=== PATIENT | male | born 1965 | race African-American/Black ===

== ENCOUNTER 2017-03-22 01:30 | Inpatient (IN) ==
[2017-03-22] MEDS ORDERED: cloNIDine 0.1 MG TABLET PO STA (02:15)
[2017-03-22] MEDS ORDERED: cloNIDine 0.1 MG TABLET ONE ×2 (02:19→02:20)
[2017-03-22] MEDS ORDERED: hydrALAZINE 20 MG/1 ML VIAL IV STA (03:20)
[2017-03-22] MEDS ORDERED: hydrALAZINE 20 MG/1 ML VIAL ONE (03:20)
[2017-03-22 03:28] LABS: Basophils # 0.1 10*3/uL (0.0-0.2); Basophils % 0.7 % (0.0-0.8); Eosinophils # 0.1 10*3/uL (0.0-0.87); Eosinophils % 1.3 % (0.00-10.9); Hemoglobin 12.2 GM/DL (14.0-18.0); Immature Granulocytes % 0.3 %; Immature Granulocytes Absolute 0.03 #; Lymphocytes # 2.6 10*3/uL (1.4-4.0); Lymphocytes % 25.2 % (21.2-54.2); Mean Corpuscular Hemoglobin 31 PG (27-34); Mean Corpuscular Volume 93.4 FL (87-102); Mean Platelet Volume 10.3 FL (9.6-12.0); Monocytes # 0.7 10*3/uL (0.11-0.8); Monocytes % 6.3 % (1.7-12.7); Neutrophils % 66.2 % (38.7-73.9); Platelet Count 276 T/CUMM (130-400); Red Blood Count 3.96 MC/CUMM (3.8-5.5); Red Cell Distribution Width 12.7 % (9.3-17.3); White Blood Count 10.5 T/CUMM (4-12)
--- NOTE | 2017-03-22 03:36 | EKG Report ---
Stationary ECG Study [facility] ER Test Date: 03/22/2017 3:34:23 AM Pat Name: JASMIN GHOSH Department: Room: Gender: M Special Delivery Messenger: : 1965 Requested by: Saul Smart Order Number: [id number] Reading MD: ROMINA CAO Intervals [place] Rate: 108 P: 65 VT: 147 QRS: 30 QRSD: 78 T: 119 QT: 303 QTc: 367 Interpretive Statements SINUS TACHYCARDIA BIATRIAL ABNORMALITIES LEFT VENTRICULAR HYPERTROPHY AND ST-T CHANGE Electronically Signed On 03-22-17 20:40:20 CDT by ROMINA CAO [id number]
[2017-03-22 05:22] LABS: Calcium 8.6 MG/DL (8.5-10.1); Osmolality,Calculated 280.4 MOS/KG (273-304); Potassium 4.3 MMOL/L (3.5-5.1)
--- NOTE | 2017-03-22 05:37 | Emergency Department Note ---
Betsy Garcia Gwan, am scribing for, and in the presence of, Saul Singh MD 02:36. ISamantha Kevin Lee, MD, personally performed the services described in this documentation, ascribed by Estrella Meyer in my presence, and it is both accurate and complete 537 . Arrival - Arrival Chief Complaint: Upper Respiratory Stated Complaint: coughs/hard to breathe/stomach issues ED Nursing Triage Note: Pt c/o cough, runny nose, constipation, sore throat. Pt states he was coughing up mucous. Pt states he has been out of his bp med for the past two months. BP 194/135 IN TRIAGE. Mode of Arrival: Ambulatory Limitations: No Limitations Source: Patient, Old Records Reviewed, RN Notes Reviewed Time Seen by Provider: 03/22/17 02:14 - History of Present Illness HPI Narrative: Patient is a 51 y/o male who presents to the ED with a c/o productive cough with yellow sputum and SOB. Patient continued to note that his sxs have progressively gotten worse since onset and have begun to prevent him from working at his fullest. He confirmed that he has been out of his BP medication for the past month but stated that he has been checking his BP at Mr. Garcia and been taking a low dose ASA. Since onset of sxs, his BP has been elevated causing concern and prompting his visit to the ED for further evaluation. At time of triage, pt's BP was 194/135. Patient did not appear to be in any distress while in ED. No other problems/complaints reported. \ Onset (ago): day(s) Consistency: constant Severity: moderate Allergies/Adverse Reactions: Allergies Allergy/AdvReac Type Severity Reaction Status Date / Time No Known Allergies Allergy Unverified 03/22/17 01:48 Review of System - Review of System 12 point system: reviewed and no additional remarkable complaints except as stated - Review of System Constitutional: Absent: chills, fever Eyes: Absent: discharge, pain Respiratory: Present: as per HPI, cough, other (shortness of breathe) Cardiovascular: Absent: chest pain Gastrointestinal: Absent: abdominal pain, nausea, vomiting, diarrhea Medical,Surgical,& Family Hx - Medical History Cardio: History of: Hypertension - Social History Smoking Status: Current every day smoker Frequency of Alcohol Use: Frequently Type of Drug Use: None Exam Vital Signs: Vital Signs Temperature 97.7 F 03/22/17 02:25 Pulse Rate 121 H 03/22/17 02:25 Respiratory Rate 18 03/22/17 02:25 Blood Pressure 194/135 03/22/17 02:25 O2 Sat by Pulse Oximetry 96 03/22/17 01:43 - General General appearance: alert, in no apparent distress - Head Head exam: Present: atraumatic, normocephalic - Eye Eye exam: Present: normal appearance, PERRL, EOMI - ENT ENT exam: Present: normal oropharynx, mucous membranes moist, TM's normal bilaterally, normal external ear exam - Neck Neck exam: Present: full ROM, trachea midline. Absent: tenderness - Chest Chest inspection: Present: symmetric chest wall rise. Absent: tenderness - Respiratory Respiratory exam: Present: normal lung sounds bilaterally. Absent: respiratory distress - Cardiovascular Cardiovascular exam: Present: regular rate, normal rhythm, normal heart sounds. Absent: murmur, rubs - Abdominal Exam Abdominal exam: Present: soft, normal bowel sounds. Absent: distention, tenderness - Extremities Exam Extremities exam: Present: full ROM. Absent: tenderness - Back Exam Back exam: Present: full ROM. Absent: tenderness - Neurological Exam Neurological exam: Present: alert, oriented X3, CN II-XII intact. Absent: motor sensory deficit - Psychiatric Psychiatric exam: Present: normal affect, normal mood - Skin Skin exam: Present: warm, dry, intact, normal color Course Course Narrative: CXR and labs show CHF will admit for HTN induced failure Results - Labs CBC & BMP: 03/22/17 03:22 03/22/17 03:22 Lab Results: I have reviewed the patients labs Labs: Laboratory Tests 03/22/17 03:22 WBC 10.5 RBC 3.96 Hgb 12.2 L Hct 37.0 L Plt Count 276 - Diagnostic Findings Procedure: Chest x-ray: image reviewed by me (mild CHF) Disposition Clinical Impression: Poorly-controlled hypertension, CHF (congestive heart failure) Case discussed with: patient Disposition: Still a Patient Condition: Stable
--- NOTE | 2017-03-22 06:15 | Hospitalist History & Physical ---
Assessment and Plan - Time spent with patient Time spent with patient: Less than 30 minutes Time spent discussing smoking cessation with patient: 3 to 10 minutes (1) CHF (congestive heart failure) Status: Acute Assessment and plan: BNP 800 Lasix 40mg IV daily EKG pending Cardiology consultation pending O2 PRN Current Visit: Yes (2) Elevated serum creatinine Status: Acute Current Visit: Yes (3) Poorly-controlled hypertension Status: Acute Assessment and plan: Will start back Norvasc 10mg po daily Will continue to monitor Current Visit: Yes History of Present Illness Chief complaint: shortness of breath; cough History of present illness: Called to the ER for Mr. Chapa who is a 51 year old male that presented to the ER with shortness of breath, fatigue, and high blood pressure that started yesterday. Patient states he woke up yesterday feeling very fatigued and short of breath and it continued throughout the day. Patient's blood pressure on arrival was 194/135. Patient has not taken his blood pressure medication for over a year and states he didn't think he needed it because he would check his blood pressure at [facility] and be normal. Patient states he has had a cough with clear sputum for a week now but denies fever, chest pain, dizziness, blurry vision, or WELCH. Patient has a history of HTN and possibly an FL. He states he was admitted here for chest pain and "almost had a heart attack." Patient will be admitted for gentle diuresis, BP control, and consultation with cardiology. Allergies Allergy/AdvReac Type Severity Reaction Status Date / Time No Known Allergies Allergy Unverified 03/22/17 01:48 Medical,Surgical,& Family Hx - Medical History Cardio: History of: Hypertension, [place] No history of: Cardiac Dysrhythmia, CHF, CAD, PVD Psychological: No history of: Anxiety Disorders Neurology: No history of: Neurological Problems HEENT: No history of: HEENT Problems Endocrine: No history of: Endocrine Problems Respiratory: No history of: Respiratory Problems Renal: No history of: Renal Problems Genitourinary: No history of: Problems Gastrointestinal: No history of: GI Problems Musculoskeletal: No history of: Musculoskeletal Problems Hematology: No history of: Blood Disorders - Family History Family History: Reports;: Family Cancer (uncle), Family Diabetes (uncle and aunt ), Family Hypertension (mother), Family Psychiatric Problems (grandmother- alzheimers) - Social History Smoking Status: Current every day smoker Have you smoked in the last 12 months: Yes (1-2 cigarrettes per day for 34 years ) Time spent discussing smoking cessation with patient: 3 to 10 minutes Frequency of Alcohol Use: Frequently (2-3 times a week; 2 beers) Type of Drug Use: None Marital Status: Lives With:: Spouse Functional capacity: independent ambulation - Constitutional Constitutional: Present: fatigue. Absent: chills, frequent falls, headache(s), lethargy, night sweats, weakness - EENT Eyes: Absent: blurry vision Nose, mouth and throat: Absent: headache(s), sore throat - Cardiovascular Cardiovascular: Present: dyspnea, dyspnea on exertion. Absent: chest pain at rest, chest pain with activity, claudication, edema, palpitations - Respiratory Respiratory: Present: cough, dyspnea. Absent: wheezing - Gastrointestinal Gastrointestinal: Absent: abdominal pain, constipation, diarrhea, dyspepsia, dysphagia, nausea, vomiting - Genitourinary Genitourinary: Absent: difficulty urinating - Neurological Neurological: Absent: tremor(s) - Hematologic/Lymphatic Hematologic/Lymphatic: Absent: easy bleeding Exam - Constitutional Vitals: Period Temp Pulse Resp BP Sys/Salvador Pulse Ox Last 24 Hr 97.7 F-97.7 F 121-121 18-18 194-194/135-135 96 General appearance: normal weight, no acute distress - Head Head exam: Present: normal inspection, normocephalic - Eye Eye exam: Present: EOMI Pupils: Present: KEAGAN, normal accommodation - ENT ENT exam: Present: normal exam - Neck Neck exam: Present: normal inspection - Respiratory Respiratory exam: Present: clear to auscultation bilaterally. Absent: accessory muscle use (Respirations even and non-labored with symmetrical rise and fall of chest noted. ) - Cardiovascular Cardiovascular exam: Present: regular rate and rhythm - GI/Abdominal GI/Abdominal exam: Present: normal bowel sounds, soft, other (protruding). Absent: tenderness - Extremities Exam Extremities exam: Present: normal inspection, normal capillary refill, full ROM - Back Exam Back exam: Present: normal inspection - Neurological Exam Neurological exam: Present: alert, oriented X3 (Answers all questions appropriately. Makes good eye contact. ) - Psychiatric Psychiatric exam: Present: normal affect, normal mood - Skin Skin exam: Present: normal color, warm, dry, intact Results - Labs CBC & BMP: 03/22/17 03:22 03/22/17 03:22 Lab Results: I have reviewed the past 24 hour labs
[2017-03-22] MEDS ORDERED: FUROSEMIDE 40 MG/4 ML VIAL IM ONE (07:19)
[2017-03-22] MEDS ORDERED: DOCUSATE SODIUM 100 MG CAPSULE PO PRN (07:28)
[2017-03-22] MEDS ORDERED: ONDANSETRON 4 MG/2 ML VIAL IV PRN (07:28)
[2017-03-22] MEDS ORDERED: NICOTINE 21 MG/24 HR PATCH TRANSDERM PRN (07:28)
[2017-03-22] MEDS ORDERED: ACETAMINOPHEN 325 MG TABLET PO PRN (07:28)
[2017-03-22] MEDS ORDERED: guaiFENesin/DM ER 600-30 MG TABLET PO PRN (07:28)
--- NOTE | 2017-03-22 07:54 | EKG Report ---
Stationary ECG Study [facility] Test Date: 03/22/2017 7:55:21 AM Pat Name: JASMIN GHOSH Department: Room: 280 Gender: M Tie Layer: : 1965 Requested by: Jayshree Roger Order Number: [id number] Reading MD: ELI ROMAN Intervals [place] Rate: 91 P: 60 [place]: 154 QRS: 32 QRSD: 79 T: 93 QT: 342 QTc: 391 Interpretive Statements SINUS RHYTHM POSSIBLE RIGHT ATRIAL ENLARGEMENT POSSIBLE LEFT ATRIAL ENLARGEMENT LEFT VENTRICULAR HYPERTROPHY AND ST-T CHANGE Electronically Signed On 03-26-17 12:16:33 CDT by ELI ROMAN [id number]
[2017-03-22] MEDS ORDERED: CARVEDILOL 12.5 MG TABLET PO SCH (09:00)
[2017-03-22] MEDS ORDERED: amLODIPine 10 MG TABLET PO SCH (09:00)
[2017-03-22 09:47] LABS: Troponin I Only 0.056 NG/ML (0.00-0.045)
[2017-03-22 10:02] LABS: Barbiturates Screen,Urine Negative (Negative); Benzodiazepines Screen,Urine Negative (Negative); Cannabinoid Screen,Urine Negative (Negative); Opiate Screen,Urine Negative (Negative); Phencyclidine Screen,Urine Negative (Negative)
[2017-03-22] MEDS: FUROSEMIDE 40 MG/4 ML VIAL IV SCH (10:08)
[2017-03-22] MEDS: ENOXAPARIN 40 MG/0.4 ML SYRINGE SUBCUT SCH (10:09)
[2017-03-22] MEDS: CHLORTHALIDONE 25 MG TABLET PO SCH (10:09)
[2017-03-22] MEDS: PANTOPRAZOLE 40 MG TABLET PO SCH (10:09)
--- NOTE | 2017-03-22 10:31 | ECHO Report ---
Mike Chapa Exam Date: 03/22/2017 09:22 Referring Physician: Technologist: Ana Cristina Gallegos Age: 51 Ht (in): 66 Wt (lb): 165 Gender: M Exam Location: [facility] Echo Indications: HTN, CHF, SOB BP: 163 / 92 HR: 90 Rhythm: Sinus Technical Quality: IMPRESSIONS 2+ left atrial enlargement 2+ concentric LVH Severely reduced LV systolic function with ejection fraction estimated to be 25% with increased anterior hypokinesis 1+ mitral and tricuspid regurgitation with RVSP 26 mmHg plus RAP MEASUREMENTS (Male / Female) Normal Values 2D ECHO LV Diastolic Diameter PLAX 5.0 cm 4.2 - 5.9 / 3.9 - 5.3 cm LV Systolic Diameter PLAX 3.7 cm LV Fractional Shortening PLAX 26.3 % IVS Diastolic Thickness 1.6 cm 0.6 - 1.0 / 0.6 - 0.9 cm LVPW Diastolic Thickness 1.3 cm 0.6 - 1.0 / 0.6 - 0.9 cm RV Internal Dim ED PLAX 3.0 cm Aortic Root Diameter 2.3 cm LA Systolic Diameter LX 4.4 cm 3.0 - 4.0 / 2.7 - 3.8 cm DOPPLER TR Peak Velocity 255.0 cm/s TR Peak Gradient 26.0 mmHg FINDINGS Left Ventricle Mildly increased left ventricular cavity size. Mild - moderate concentric left ventricular hypertrophy with diastolic dysfunction. Left ventricular ejection fraction is estimated at Right Ventricle Normal right ventricular size. Right Atrium The right atrium is mildly enlarged. Left Atrium Mildly increased left atrial diameter. Mitral Valve Mildly thickened mitral valve with mild mitral regurgitation. Aortic Valve The aortic valve is trileaflet and has normal motion. Tricuspid Valve Morphologically normal tricuspid valve.trace to mild tricuspid valve regurgitation. Tricuspid regurgitation velocities suggest a PAP of 26.0 mmHg. Pulmonic Valve Morphologically normal pulmonic valve. Trace pulmonary valve regurgitation. Pericardium No pericardial effusion. Aorta Normal size aortic root and proximal ascending aorta. Craig Weir (Electronically Signed) Final Date: 22 March 2017 10:11
--- NOTE | 2017-03-22 10:55 | XRay Report ---
Portable chest Exam date: 03/22/2017 2:15 AM Indication: Shortness of breath, cough Comparison: July 30, 2014 Findings: Cardiomediastinal contours are stable. Diffuse reticulonodular interstitial pattern. No acute osseous abnormalities. Visualized upper abdomen demonstrates no acute pathology. Impression: Reticular nodular interstitial opacities, may be inflammatory in etiology or represent early edema PROCEDURE INTERPRETED AT [facility] DEPARTMENT OF RADIOLOGY Final Report Signed by: Yaniv Matos
--- NOTE | 2017-03-22 13:36 | Cardiology Consult Note ---
Assessment and Plan (1) Cardiomyopathy Status: Acute Assessment and plan: 1. 51-year-old BM smoker with untreated hypertension for over a year, recent cocaine use (Thursday evening), and initial hypertensive urgency (initially in the 190 systolic, now 106 mmHg systolic) who is ruled out for myocardial infarction is no acute EKG changes (LVH) 2. Echocardiogram today shows ejection fraction 25% with LVH 3. Cardiomyopathy is likely due to hypertension uncontrolled and cocaine use; this evening he will be 48 hours out from his cocaine use which should be able to get Coreg 3.125 mg twice daily 4. Chlorthalidone should be a good choice for blood pressure control/diuresis 5. Add low-dose lisinopril given his cardiomyopathy. 6. We had a long discussion and he says he definitely plans not to use cocaine anymore and to stop smoking "I just got some at a libertarian hanging out with the wrong crowd" 7. Follow-up in clinic in about 2-3 weeks time for medicine titration and consideration of outpatient stress test. Current Visit: Yes (2) Cocaine abuse Status: Acute Current Visit: Yes (3) Poorly-controlled hypertension Status: Acute Current Visit: Yes History of Present Illness - Consult Narrative History of present illness: Mr. Chapa is a 51 year old male with long history of hypertension although is been off his medication for over a year. He admits to doing some cocaine Michael night at a libertarian. He reports a week or 2 of cough and then a week of increased dyspnea on exertion orthopnea. He has not had PND presyncope syncope or palpitations. He is not having chest pain other than "just a second or 2 once in a while". This does not sound like angina. His blood pressure was severely elevated in the 190s when he came in, as he reported was high Mr. sethi that prompted him to get checked out. Is now under 110 BP systolic. He is now asymptomatic. CC: Evangelist Marino MD - Home Medications and Allergies Home Medications: Home Medications Medication Instructions Recorded Confirmed Type amLODIPine [Norvasc] 10 mg PO DAILY 03/22/17 03/22/17 History Allergies/Adverse Reactions: Allergies Allergy/AdvReac Type Severity Reaction Status Date / Time No Known Allergies Allergy Unverified 03/22/17 01:48 Medical,Surgical,& Family Hx - Medical History Cardio: History of: Hypertension No history of: Cardiac Dysrhythmia, CHF, CAD, [place], PVD Psychological: No history of: Anxiety Disorders Neurology: No history of: Neurological Problems HEENT: No history of: HEENT Problems Endocrine: No history of: Endocrine Problems Respiratory: No history of: Respiratory Problems Renal: No history of: Renal Problems Genitourinary: No history of: Problems Gastrointestinal: No history of: GI Problems Musculoskeletal: No history of: Musculoskeletal Problems Hematology: No history of: Blood Disorders - Family History Family History: Reports;: Family Cancer (uncle), Family Diabetes (uncle and aunt ), Family Hypertension (mother), Family Psychiatric Problems (grandmother- alzheimers) - Social History Smoking Status: Current every day smoker Frequency of Alcohol Use: Frequently Type of Drug Use: None Physical Examination Vital Signs Temp Pulse Resp BP Pulse Ox 97.7 F 121 H 18 194/135 96 03/22/17 01:43 03/22/17 01:43 03/22/17 01:43 03/22/17 01:43 03/22/17 01:43 General: Present: Appears Well, No Apparent Distress Cardiac: Present: Reg Rate and Rhythm. Absent: Systolic Murmur, Diastolic Murmur Lungs: Present: Rales - Left. Absent: Wheezes Abdomen: Present: Soft, Non-Tender Extremities: Absent: Edema Result/EKG - Labs CBC & BMP: 03/22/17 03:22 03/22/17 03:22 Labs: Laboratory Results - last 24 hr 03/22/17 03/22/17 03/22/17 03:22 03:22 03:22 WBC 10.5 RBC 3.96 Hgb 12.2 L Hct 37.0 L MCV 93.4 MCH 31 MCHC 33.0 RDW 12.7 Plt Count 276 MPV 10.3 Neut % (Auto) 66.2 Lymph % (Auto) 25.2 [place] % (Auto) 6.3 Eos % (Auto) 1.3 Baso % (Auto) 0.7 Neut # (Auto) 7.0 Lymph # (Auto) 2.6 [place] # (Auto) 0.7 Eos # (Auto) 0.1 Baso # (Auto) 0.1 Immature Gran % 0.3 Nucleated RBC % 0.0 Immature Gran # 0.03 Nucleated RBCs # 0.00 Immature Plt Fraction 0.0 Sodium 140 Potassium 4.3 Chloride 110 H Carbon Dioxide 24 Anion Gap 10.3 BUN 18 Creatinine 1.40 H GFR Calculation 71 BUN/Creatinine Ratio 12.00 Glucose 94 Calculated Osmolality 280.4 Calcium 8.6 Total Creatine Kinase CK-MB (CK-2) Troponin I B-Natriuretic Peptide 886 H Urine Opiates Screen Ur Barbiturates Screen Ur Phencyclidine Scrn U Amphetamine/Methamph U Benzodiazepines Scrn U Cocaine Metab Screen U Cannabinoids Screen 03/22/17 03/22/17 03:22 08:18 WBC RBC Hgb Hct MCV MCH MCHC RDW Plt Count MPV Neut % (Auto) Lymph % (Auto) [place] % (Auto) Eos % (Auto) Baso % (Auto) Neut # (Auto) Lymph # (Auto) [place] # (Auto) Eos # (Auto) Baso # (Auto) Immature Gran % Nucleated RBC % Immature Gran # Nucleated RBCs # Immature Plt Fraction Sodium Potassium Chloride Carbon Dioxide Anion Gap BUN Creatinine GFR Calculation BUN/Creatinine Ratio Glucose Calculated Osmolality Calcium Total Creatine Kinase 405 H CK-MB (CK-2) 4.7 H Troponin I 0.056 H B-Natriuretic Peptide Urine Opiates Screen Negative Ur Barbiturates Screen Negative Ur Phencyclidine Scrn Negative U Amphetamine/Methamph Negative U Benzodiazepines Scrn Negative U Cocaine Metab Screen Positive H U Cannabinoids Screen Negative
[2017-03-22] MEDS ORDERED: ISOSORBIDE DINITRATE 20 MG TABLET PO SCH (15:00)
[2017-03-22] MEDS ORDERED: hydrALAZINE 25 MG TABLET PO SCH (15:00)
[2017-03-22] MEDS: CARVEDILOL 3.125 MG TABLET PO SCH (22:05)
[2017-03-22] MEDS: LISINOPRIL 5 MG TABLET PO SCH (22:05)
[2017-03-23 05:51] LABS: Calcium 9.3 MG/DL (8.5-10.1); Magnesium 2.1 MG/DL (1.8-2.4); Osmolality,Calculated 278.4 MOS/KG (273-304); Potassium 4.2 MMOL/L (3.5-5.1); Troponin I Only 0.034 NG/ML (0.00-0.045)
[2017-03-23] MEDS: ENOXAPARIN 40 MG/0.4 ML SYRINGE SUBCUT SCH (08:18)
[2017-03-23] MEDS: CARVEDILOL 3.125 MG TABLET PO SCH (08:19)
[2017-03-23] MEDS: FUROSEMIDE 40 MG/4 ML VIAL IV SCH (08:19)
[2017-03-23] MEDS: PANTOPRAZOLE 40 MG TABLET PO SCH (08:19)
[2017-03-23] MEDS: CHLORTHALIDONE 25 MG TABLET PO SCH (08:19)
[2017-03-23] MEDS: LISINOPRIL 5 MG TABLET PO SCH (08:19)
--- NOTE | 2017-03-23 11:31 | Discharge Summary ---
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 He was admitted to the hospital with pulmonary edema and uncontrolled hypertension. He has responded well to diuretics and blood pressure controlled. He was seen in consultation by cardiology and had medication adjustments. Echo shows : 2+ left atrial enlargement 2+ concentric LVH Severely reduced LV systolic function with ejection fraction estimated to be 25% with increased anterior hypokinesis 1+ mitral and tricuspid regurgitation with RVSP 26 mmHg plus RAP. The patient has reached maximal benefit from this inpatient hospitalization. He is no longer short of breath able to ambulate to the bathroom without dyspnea. He has responded well to diuretic therapy. Patient's prescriptions were sent to [place] [facility] for the patient to apple picking supervisor upon discharge. All of his questions were answered appropriately. He is reminded of the importance of compliance. His home medications were reviewed and reconciled he is a full code. Smoking cessation counseling was given for 3 minutes. - Time spent with patient Time with patient DS: Greater than 30 minutes (Total discharge time for this patient, including [id number] time, clinical documentation, medication reconciliation, and discharge planning was 37 minutes.) Time spent discussing smoking cessation with patient: 3 to 10 minutes (3) Diagnosis - Discharge Diagnosis (1) Poorly-controlled hypertension Status: Chronic (2) CHF (congestive heart failure) Status: Acute (3) Elevated serum creatinine Status: Acute (4) Cardiomyopathy Status: Chronic (5) Cocaine abuse Status: Chronic Specialty Discharge - Follow Up or Referrals Follow up with: Craig Weir MD [Physician] - (2-3 WEEKS APRIL 08, 2017 AT 8:30 AM) Discharge Plan - Discharge Data Disposition: Disch To Home/Self Care Condition at Discharge: Stable Discharge Diet: heart healthy Activity: resume usual activities as tolerated Hygiene: no restrictions Weight Bearing at Discharge: full weight bearing Contact your physician if you experience:: Shortness of breath - Discharge Medications New Carvedilol [Coreg] 3.125 mg PO BID #60 tablet Chlorthalidone [Hygroton] 25 mg PO DAILY #30 tablet Lisinopril [Prinivil] 5 mg PO BID #60 tablet guaiFENesin/DM ER 600-30 [Mucinex Dm 600-30 MG] 1 tablet PO BID PRN tablet PRN Reason: Congestion Discontinued amLODIPine [Norvasc] 10 mg PO DAILY - Follow Up or Referral Follow Up: Craig Weir MD [Physician] - (2-3 WEEKS APRIL 08, 2017 AT 8:30 AM) - Forms/Instructions Instructions: Lisinopril (By mouth), Guaifenesin (By mouth), Chlorthalidone ( By mouth), Carvedilol (By mouth) Exam - Constitutional Vitals: Period Temp Pulse Resp BP Sys/Salvador Pulse Ox Last 24 Hr 97.5 F-99.3 F 79-87 16-20 108-122/64-84 94-98 Discharge Results Labs on day of discharge: Labs from last 24 hours 03/23/17 03/22/17 04:55 15:45 Sodium 140 Potassium 4.2 Chloride 106 Carbon Dioxide 28 Anion Gap 10.2 BUN 13 Creatinine 1.30 GFR Calculation 78 BUN/Creatinine Ratio 10.00 Glucose 98 Calculated Osmolality 278.4 Calcium 9.3 Magnesium 2.1 Total Creatine Kinase 236 D Troponin I 0.034 0.032 DS: Provider Date of admission: 03/22/17 05:55 Primary care physician: . No PCP Attending physician on admission: Brigido Ly MD Consults: 03/22/17 07:28 Consult to Case Mgmt/Social Srvs [CONS] Routine Reason for Case Mgmt/Social Srvs: Discharge Planning Other Consult Comment: Please make follow-up appointments for patient Consult to Physician [CONS] Routine Comment: CHF; hx HTN; noncompliance Consulting Provider: Christie Gonzalez Consult to Specialist Group: Cardiology Person Notified: Date Notified: 03/22/17 Time Notified: 09:00 Consult Notification Comment: Notified while on floor rounding on patients spoke with Ana Cristina at 0745 of [facility] consult on 03/22/17 07:38 Consult to Pastoral Services [CONS] Routine Comment: Pastoral Screen: Request Vehicle Trimmer Visit Discharging clinician: Shirley Angel MD Expected date of discharge: 03/23/17
[2017-03-23 11:51] VITALS: BP 115/78
== END 2017-03-23 15:10 | disposition home or self-care (01) | DRG 293 ==
LOC: N.ED 01:30 → SUATTDRO 05:55 → N.EDINP 05:55 → N.TELEN 06:24
PROVIDERS: ADMIT Family Medicine; ATTEND Family Medicine